=== PATIENT | female | born 1990 | race American Indian/Alaskan Native ===

== ENCOUNTER 2017-07-31 08:46 | Emergency (ER) | payer BC ==
[2017-07-31 09:22] VITALS: O2SAT 100
[2017-07-31] MEDS ORDERED: Sodium Chloride 0.9% 1,000 ML IV ONE (09:22)
[2017-07-31] MEDS ORDERED: Sodium Chloride 0.9% 1,000 ML ONE (09:31)
--- NOTE | 2017-07-31 10:00 | C.PDOC ---
History Of Present Illness 27 y/o female presents to ED with c/o dizziness earlier today while cooking breakfast. Patient is a [employer] employee and states while she was cooking felt "room spinning" and lightheadedness. Patient denies chest pain, sob , nausea, vomiting, abdominal pain or any other complaints at this time. Time Seen by Provider: 07/31/17 09:03 Chief Complaint (Nursing): Dizziness/Lightheaded History Per: Patient History/Exam Limitations: no limitations Onset/Duration Of Symptoms: Hrs Current Symptoms Are (Timing): Still Present Activity At Onset Of Symptoms: Standing Past Medical History Reviewed: Historical Data, Nursing Documentation, Vital Signs Vital Signs: Last Vital Signs Temp 98.7 F 07/31/17 10:48 Pulse 72 07/31/17 10:48 Resp 20 07/31/17 10:48 BP 100/69 07/31/17 10:48 Pulse Ox 100 07/31/17 11:19 - Medical History PMH: No Chronic Diseases Surgical History: No Surg Hx Family History: States: No Known Family Hx - Social History Hx Tobacco Use: No Hx Alcohol Use: No Hx Substance Use: No - Immunization History Hx Tetanus Toxoid Vaccination: No Hx Influenza Vaccination: No Hx Pneumococcal Vaccination: No Review Of Systems Except As Marked, All Systems Reviewed And Found Negative. Neurological: Positive for: Dizziness Physical Exam - Physical Exam Appears: Non-toxic, No Acute Distress Skin: Warm, Dry, No Rash Head: Atraumatic, Normacephalic Eye(s): bilateral: PERRL, EOMI Ear(s): Bilateral: Normal Oral Mucosa: Moist Neck: Normal ROM, Supple Cardiovascular: Rhythm Regular Respiratory: Normal Breath Sounds, No Rales, No Rhonchi, No Wheezing Gastrointestinal/Abdominal: Soft, No Tenderness, No Guarding, No Rebound Extremity: Normal ROM, Capillary Refill (<2 seconds) Neurological/Psych: Oriented x3, Normal Speech, Normal Cognition, Normal Cranial Nerves, Normal Sensation, Normal Reflexes Gait: Steady ED Course And Treatment - Laboratory Results Result Diagrams: 07/31/17 09:54 07/31/17 09:54 ECG: Interpreted By Me, Viewed By Me ECG Rhythm: Sinus Bradycardia Rate From EC (BPM) O2 Sat by Pulse Oximetry: 100 (RA) Pulse Ox Interpretation: Normal Medical Decision Making Medical Decision Making: Assessment: Dizziness Plan: Blood work, EKG, UA ordered. Sudafed and antivert administered dizziness - patient states improvement and no further dizziness. Patient discharged home to follow up with pmd. Disposition Counseled Patient/Family Regarding: Studies Performed, Diagnosis, Need For Followup, Rx Given - Disposition Referrals: Farzana Collins MD [Medical Doctor] - Disposition: HOME/ ROUTINE Disposition Time: 11:17 Condition: IMPROVED Additional Instructions: follow up with your doctor in 2 days call to make an appointment take medications as prescribed return to ER if symptoms worsens or progress Prescriptions: Meclizine [Meclizine*] 25 mg PO TID PRN #15 tab PRN Reason: Dizziness Pseudoephedrine HCl [Sudafed] 30 mg PO QID PRN #15 tablet PRN Reason: Dizziness Instructions: Dizziness, Nonvertigo, (DC) Forms: General Discharge Instructions, [facility] ([place]), Work Excuse - Clinical Impression Clinical Impression: Dizziness - Scribe Statement The provider has reviewed the documentation as recorded by the Cynthia Morris All medical record entries made by the Cynthia were at my direction and personally dictated by me. I have reviewed the chart and agree that the record accurately reflects my personal performance of the history, physical exam, medical decision making, and the department course for this patient. I have also personally directed, reviewed, and agree with the discharge instructions and disposition.
[2017-07-31 10:09] LABS: BASO % 0.4 % (0.0-2.0); EOS # 0.2 K/uL (0.0-0.7); EOS % 4.2 % (0.0-4.0); HEMOGLOBIN 12.1 g/dL (11.0-16.0); LYMPH # 2.3 K/uL (1.0-4.3); LYMPH % 38.8 % (20.0-40.0); MEAN CELL VOLUME 88.1 fL (81.0-99.0); MEAN CORPUSCULAR HEMOGLOBIN 30.8 pg (27.0-31.0); MEAN PLATELET VOLUME 8.7 fL (7.2-11.7); MONO # 0.6 K/uL (0.0-0.8); MONO % 10.7 % (0.0-10.0); NEUT # 2.7 K/uL (1.8-7.0); NEUT % 45.9 % (50.0-75.0); NRBC % 0.1 % (0.0-2.0); RBC 3.93 Mil/uL (3.80-5.20); RED CELL DISTRIBUTION WIDTH 14.2 % (11.5-14.5); WHITE BLOOD COUNT 5.8 K/uL (4.8-10.8)
[2017-07-31 10:15] LABS: SQUAMOUS EPITHIAL 9 /hpf (0-5); URINE BILIRUBIN NEGATIVE (NEGATIVE); URINE BLOOD NEGATIVE (NEGATIVE); URINE CLARITY Clear (Clear); URINE COLOR Yellow (YELLOW); URINE GLUCOSE (UA) NORMAL (Normal); URINE LEUKOCYTE ESTERASE NEG Leu/uL (Negative); URINE PROTEIN NEGATIVE (NEGATIVE); URINE UROBILINOGEN NORMAL mg/dL (0.2-1.0)
[2017-07-31 10:22] LABS: ALB/GLOB RATIO 1.1 (1.0-2.1); ALBUMIN 3.9 g/dL (3.5-5.0); ALT/SGPT 11 U/L (9-52); AST/SGOT 23 U/L (14-36); BLOOD UREA NITROGEN 14 mg/dL (7-17); GFR AFRICAN-AMERICAN > 60; GFR NON-AFRICAN AMERICAN > 60
[2017-07-31 10:49] VITALS: BP 100/69; PULSE 72; RESP 20; TEMP 98.7
--- NOTE | 2017-08-01 22:04 | CARD ---
APPROVED REPORT EKG Measurement Heart [id number] <Conclusion> Sinus bradycardia with sinus arrhythmia Otherwise normal ECG
== END 2017-07-31 11:52 | disposition home or self-care (01) ==
LOC: C.ER 08:46
DX: R42 Dizziness and giddiness (principal)
CPT/HCPCS: 80053; 81001; 85025; 93005; 96360; 99285; J7040

== ENCOUNTER 2018-08-22 08:23 | Emergency (ER) | payer BC ==
[2018-08-22 08:32] VITALS: TEMP 98
[2018-08-22] MEDS ORDERED: Fluorescein 1 mg Ophthalmic Strip ONE (08:58)
[2018-08-22] MEDS ORDERED: Tetracaine 0.5% Ophth (OR ONLY) ONE (08:58)
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
[2018-08-22] MEDS ORDERED: Tetracaine 0.5% Ophth 2 ML BOTTLE OD ONE (09:38)
[2018-08-22 09:45] VITALS: BP 116/77; PULSE 60; RESP 18
[2018-08-22 09:53] VITALS: O2SAT 99
== END 2018-08-22 10:07 | disposition home or self-care (01) ==
LOC: C.ER 08:23
DX: S05.02XA Injury of conjunctiva and corneal abrasion without foreign body, left eye, initial encounter (principal); W50.0XXA Accidental hit or strike by another person, initial encounter